=== PATIENT | male | born 2000 | race Caucasian/White ===

== ENCOUNTER 2020-11-14 22:16 | Emergency (ER) | payer SELFPAY ==
[2020-11-14 22:17] VITALS: BP 142/73; PULSE 86; RESP 16; TEMP 36.8; O2SAT 98; BMI 24.8
--- NOTE | 2020-11-14 22:25 | ED.VIS.GEN ---
History of Present Illness Chief Complaint: Eye Problem Informant: Patient Narrative: 20 yo male with no significant past medical history presents with right eye irritation. Feels he got a possible piece of rust or metal in his eye while working on his car this morning. States it happened approximate 11 hours ago. States it is at the top of his eye. Has a sharp stabbing pain. Denies any vision change. Past Medical History - Allergies and Home Meds Allergies/Adverse Reactions: Allergies No Known Allergies Allergy (Verified 11/14/20 22:19) Prior records reviewed: Yes Past Medical History: None Lives: Alone Smoking Status: Never smoker Alcohol: None Drugs: None Review of Systems General: Denies: Chills, Fever, Sweats Eyes: Reports: - - right eye irritation. Denies: Visual changes - bilaterally, Diplopia ENT: Denies: Rhinorrhea, Sore throat Cardiovascular: Denies: Chest pain, Palpitations Respiratory: Denies: Dyspnea, Cough, Dyspnea on exertion Gastrointestinal: Denies: Abdominal pain, Nausea, Vomiting, Diarrhea, Melena, Hematochezia Genitourinary: Denies: Dysuria, Hematuria, Frequency Musculoskeletal: Denies: Back pain, Extremity Pain Skin: Denies: Rash, Wounds Neurological: Denies: Headache, Weakness, Numbness Physical Exam Vital Signs/Narrative: Vital Signs Temp Pulse Resp BP Pulse Ox 11/14/20 22:17 98.3 F 86 16 142/73 H 98 Inital Vital Signs reviewed: Yes General: Well nourished, Well developed, No Acute Distress Head: Normocephalic, Atraumatic Eyes: Perrl, EOMI, - - injected conjunctiva. no FB. flourscein uptake at approximately the 3 o clock position ENT: Moist mucous membranes, No rhinorrhea Neck: Supple, Nontender Cardiovascular: Regular rate, Regular rhythm, No murmurs Respiratory: No distress, CTA bilaterally, Chest nontender Abdomen: Soft, Nontender, Nondistended, Normal bowel sounds Back: Nontender, Normal Inspection Extremities: Nontender, No edema Skin: Normal color, No rash Neurological: Alert, Oriented x3, Cranial nerves II-XII grossly intact, Normal Strength, Normal Sensation Psychological: Normal affect, Normal Mood Diagnostic/Tx/Re-eval - Medical Decision Making Patient appears well and nontoxic. Vital signs within normal limits. Evidence of a corneal abrasion approximately the 3 o'clock position. No appreciable foreign body. No vision change. Patient was given ophthalmic Toradol and Ciloxan in the emergency department. Will be given these for home and follow-up with ophthalmology. Asked to return for new or worsening symptoms. Patient agreeable and stable at time of discharge. Impression: 1. Right eye corneal abrasion ED Disposition - Plan for ED Patient: Disposition: Home or Assisted Living Instructions: ED Corneal Abrasion Prescriptions: Ketorolac Tromethamine [Acular LS] 1 drp RIGHT EYE 4X/DAY #1 bottle Prescription Printed Ciprofloxacin HCl [Ciloxan] 2 drp RIGHT EYE 5X/DAY #1 bottle Prescription Printed Referrals: Anuel Jain MD [STAFF PHYSICIAN] - 1 Day
[2020-11-14] MEDS: Ciprofloxacin 0.3% 2.5ml Bottle 2 DRP RIGHT EYE (23:12)
[2020-11-14] MEDS: Tetracaine 0.5% Ophthalmic Bottle 1 DRP RIGHT EYE (23:13)
== END 2020-11-14 23:45 | disposition home or self-care (01) ==
LOC: ED 23:05
PROVIDERS: Emergency Provider Emergency Medicine
DX: S05.01XA Injury of conjunctiva and corneal abrasion without foreign body, right eye, initial encounter (principal); X58.XXXA Exposure to other specified factors, initial encounter; Y93.9 Activity, unspecified; Y92.9 Unspecified place or not applicable
CPT/HCPCS: 99283; A4216